=== PATIENT | female | born 1985 | race Caucasian/White ===

== ENCOUNTER 2021-08-30 21:56 | Emergency (ER) | payer OTHER ==
[~2021-08-30 21:56] MED LIST: FLOMAX0.4 MG PO; NORCO 5-325 TA1 EACH PO; PRENATAL VITAM1 EAC8 PO; ZOFRAN4 MG PO
[2021-08-30 23:21] LABS: HEMOGLOBIN 12.3 gm/dl (12.3-15.3); RED BLOOD COUNT 4.49 M/UL (4.00-5.10)
[2021-08-30 23:54] LABS: BUN/CREATININE RATIO 22 (0-10)
[2021-08-31] MEDS ORDERED: PERCOCET 5/325 T1 EA PO (05:29)
[2021-08-31] MEDS ORDERED: FLOMAX 0.4 MG0.4 MG PO (05:32)
[2021-08-31] MEDS ORDERED: ONDANSETRON ODT4 MG SL (05:32)
[2021-08-31] MEDS ORDERED: TORADOL 10 MG T10 MG PO (05:32)
== END 2021-08-31 05:54 | disposition home or self-care (01) ==
LOC: ER1 21:56
PROVIDERS: Physician Assistant
DX: R10.813 Right lower quadrant abdominal tenderness (principal); R11.2 Nausea with vomiting, unspecified; Z87.442 Personal history of urinary calculi
CPT/HCPCS: 80053; 81001; 83690; 84703; 85025; 87086; 96374; 96375; 99284; J1885; J2405; Q9967